=== PATIENT | male | born 1990 | race Caucasian/White ===

== ENCOUNTER 2018-03-30 20:27 | Emergency (ER) | payer OTHER ==
--- NOTE | 2018-03-30 20:47 | EDPHY ---
H & P Stated Complaint: depression ,anxiet/recent admision to [facility] Time Seen by Provider: 03/30/18 20:47 - Personal History Current Tetanus Diphtheria and Acellular Pertussis (TDAP): No - Medical/Surgical History Hx Asthma: Yes Hx Chronic Respiratory Disease: No Hx Diabetes: No Hx Cardiac Disease: No Hx Renal Disease: No Hx Cirrhosis: No Hx Alcoholism: No Hx HIV/AIDS: No Hx Splenectomy or Spleen Trauma: No Other PMH: deprssion anxiety - Social History Smoking Status: Current every day smoker Constitutional: Initial Vital Signs Temperature (C) 36.4 C 03/30/18 20:29 Heart Rate 65 03/30/18 20:29 Respiratory Rate 16 03/30/18 20:29 Blood Pressure 131/82 H 03/30/18 20:29 O2 Sat (%) 98 03/30/18 20:29 O2 Delivery Mode Room Air Allergies/Adverse Reactions: No Known Allergies Allergy (Unverified 03/30/18 20:35) Home Medications: Medication Instructions Recorded Lexapro 03/30/18 Wellbutrin 100mg (*) 03/30/18 Medical Decision Making ED Course/Re-evaluation: CHIEF COMPLAINT: Psychiatric evaluation HISTORY OF PRESENT ILLNESS: The patient is a 27 y/o male with a history of depression and anxiety arriving to the emergency department for a mental health evaluation. He has been hospitalized and [facility] recently and they have been changing his medicines around. He has an appointment with his psychologist tomorrow and his psychiatrist on Saturday. Initially he thought he was very sad and lonely in came here because he was feeling a bit suicidal. However he is not suicidal anymore. He states that his friend is here with thumb who lives with him and another friend is going to stop over his parents are in town and they will spend time with him tomorrow also he feels much better and much calmer now he just wants something to help him sleep a little bit. I have asked him several times several different ways whether not he is suicidal and he denies it. REVIEW OF SYSTEMS: A comprehensive 10 system review of systems is otherwise negative aside from elements mentioned in the history of present illness and medical decision making. PHYSICAL EXAM: General Appearance: Alert, well hydrated, appropriate, and non-toxic appearing. Head: Atraumatic without scalp tenderness or obvious injury Eyes: Pupils equal, round, reactive to light and accommodation, EOMI, no trauma , no injection. Ears: Clear bilaterally, no perforation, normal landmarks Nose: Atraumatic, no rhinorrhea, clear. Throat: There is no erythema or exudates, no lesions, normal tonsils, mucus membranes moist. Neck: Supple, 2+ carotid upstroke, nontender, no lymphadenopathy. Respiratory: No retractions, no distress, no wheezes, and no accessory muscle use. Lungs are clear to auscultation bilaterally. Cardiovascular: Regular rate and rhythm, no murmurs, rubs, or gallops. Bilateral carotid, radial, dorsalis pedis, and posterior tibial pulses intact. Good capillary refill all extremities. Gastrointestinal: Abdomen is soft, nontender, non-distended, no masses, no rebound, no guarding, no peritoneal signs. Musculoskeletal: Normal active ROM of all extremities, atraumatic. Neurological: Alert, appropriate, and interactive. The patient has normal DTRs and non-focal cranial nerves, motor, sensory, and cerebellar exam. Skin: No rashes, good turgor, no nodules on palpation. Past medical history: Depression, anxiety Past surgical history: Denies Family history: Denies Social history: Lives in [place], single, not employed, does not abuse tobacco drugs or alcohol DIFFERENTIAL DIAGNOSIS: The differential diagnosis for the patient's depression included but was not limited to functional and major depression, situational depression, medication side effect, drugs, and alcohol abuse. MEDICAL DECISION MAKING: Patient is in no acute distress and is hemodynamically stable. The patient is not suicidal. The patient meets no criteria for an M1 hold. The patient has good contract for safety with his significant other in the room and another friend coming over this evening. The significant other is traveling over the next week and his parents will spend each day with him according to the patient and his significant other. I will give him for Ativan to help him get some sleep for couple nights. He has a psychological appointment tomorrow in a psychiatric appointment on Saturday. Departure - Departure Disposition: Home, Routine, Self-Care Clinical Impression: Severe major depression Condition: Good Instructions: Lorazepam (By mouth), Depression (ED) Additional Instructions: 1. Follow-up with your mental health provider as directed. 2. Return to the ED for thoughts of self-harm, racing thoughts or other concerns. Referrals: [facility],. [Clinic] - As per Instructions Report Scribed for: Aguila Montgomery Report Scribed by: Etelvina Richey Date of Report: 03/30/18 Time of Report: 21:03
[2018-03-30] MEDS ORDERED: LORAZEPAM 1 MG PREPACK#4 BTL TAKEHOME ONE (21:21)
[2018-03-30 21:34] VITALS: BP 134/77
== END 2018-03-30 21:34 | disposition home or self-care (01) ==
DX: F32.2 Major depressive disorder, single episode, severe without psychotic features (principal); F41.9 Anxiety disorder, unspecified; F17.200 Nicotine dependence, unspecified, uncomplicated

== ENCOUNTER 2018-04-25 14:43 | Emergency (ER) | payer OTHER ==
--- NOTE | 2018-04-25 15:20 | EDPHY ---
H & P - Medical/Surgical History Hx Asthma: Yes Hx Chronic Respiratory Disease: No Hx Diabetes: No Hx Cardiac Disease: No Hx Renal Disease: No Hx Cirrhosis: No Hx Alcoholism: No Hx HIV/AIDS: No Hx Splenectomy or Spleen Trauma: No Other PMH: deprssion anxiety - Social History Smoking Status: Current every day smoker Time Seen by Provider: 04/25/18 14:50 HPI/ROS: CHIEF COMPLAINT: M1, depression HISTORY OF PRESENT ILLNESS: The patient is a 27 y/o male arriving via EMS on an M1 hold for depression and suicidal ideation. He has a history of prior suicide attempts via cutting his wrists in addition to history of chronic abdominal pain from inflammatory bowel disease. He is on medications for depression including bupropion, escitalopram, and gabapentin and reports he is compliant with these. He takes THC nightly to help him sleep as he reports this is the only thing that helps his chronic abdominal pain. He reports he is currently " no danger to myself or others" and his plan today was "to just lie in bed and eventually get up and go to the coffee shop and [employer] store because that cheers me up." He is adamant that he does not want to return to [facility] because he has PTSD from a prior admission at that facility. He says, "it' s not a healing environment. I will do anything, please don't send me there." Reportedly, he was placed on the M1 due to concern from his father, girlfriend, and therapist for suicidal ideation due to increased alcohol use and depressive symptoms. REVIEW OF SYSTEMS: A comprehensive 10 system review of systems is otherwise negative aside from elements mentioned in the history of present illness and medical decision making. * Past medical history: Inflammatory bowel disease, depression - bupropion Past surgical history: Noncontributory Family history: Noncontributory Social history: Daily THC use. He reports he's begun smoking cigarettes recently. Adult Physical: General Appearance: Alert, no acute distress. Eyes: Pupils equal and round, no conjunctival injection, no discharge. ENT, Mouth: Mucous membranes are moist, no oropharyngeal erythema or edema. Neck: No lymphadenopathy, supple. Respiratory: Lungs are clear to auscultation; no wheezes, rales, or rhonchi. Cardiovascular: Regular rate and rhythm; no murmur, rub, or gallop. Gastrointestinal: Abdomen is soft and non tender, no masses or organomegaly. Skin: Warm and dry, no rashes, normal color. Back: Nontender to palpation over the thoracolumbar spine. Extremities: No lower extremity edema, no calf tenderness or swelling. Neurological: Alert and oriented. Moving all four extremities easily and equally. Psychiatric: Tearful, pleading. (Sophie Anderson) Constitutional: Initial Vital Signs Temperature (C) 36.4 C 04/25/18 14:50 Heart Rate 62 04/25/18 14:50 Respiratory Rate 16 04/25/18 14:50 Blood Pressure 151/89 H 04/25/18 14:50 O2 Sat (%) 99 04/25/18 14:50 O2 Delivery Mode Room Air Allergies/Adverse Reactions: No Known Allergies Allergy (Unverified 03/30/18 20:35) Home Medications: Medication Instructions Recorded Bupropion HCl ER 2 tab PO DAILY 04/25/18 Escitalopram Oxalate 1 tab PO DAILY 04/25/18 Gabapentin [Neurontin 300 MG (*)] 1 - 2 tab PO PRN MDD up to 3 times 04/25/18 per day Medical Decision Making ED Course/Re-evaluation: 06: No acute events overnight. Signed over to Dr. Zazueta. (Goivnd Banks) I took over care of this patient at 7:00 a.m.. This patient is on an M1 hold for suicidal ideation. The patient is to be admitted to a psychiatric facility. Destination pending. 10:10 a.m., the patient has been accepted for transfer to inpatient psychiatric unit at [facility]. I filled out the appropriate transfer paperwork. The patient's remaining emergency department course under my care has been uneventful. The patient was transferred in stable condition. (Ursula Conner) This is a 27 y/o male with depression who presents on an M1 hold for suicidal ideation. He denies being a threat to himself or others, though his father, girlfriend, and therapist were very concerned his depression was worsening and he was increasing his substance use. Plan for standard psychiatric labs and evaluation. Care transferred to Dr. Banks at 11:30 p.m. Patient has been accepted at [facility]. EMTALA form has been signed. Transfer will be early in the morning. (Sophie Anderson) Differential Diagnosis: I considered a differential diagnosis that includes but is not limited to depression, suicidality, psychosis, tylor, and substance abuse. (Sophie Anderson ) - Data Points Laboratory Results: Laboratory Results 04/25/18 15:20 04/25/18 15:20 Medications Given: Discontinued Medications Citalopram Hydrobromide (Celexa) 20 mg PO EDNOW ONE Stop: 04/25/18 23:09 Last Admin: 04/26/18 00:47 Dose: Not Given Diphenhydramine HCl (Benadryl) 50 mg PO EDNOW ONE Stop: 04/25/18 23:51 Last Admin: 04/26/18 00:22 Dose: 50 mg Gabapentin (Neurontin) 600 mg PO EDNOW ONE Stop: 04/25/18 23:10 Last Admin: 04/25/18 23:17 Dose: 600 mg Lorazepam (Ativan) 1 mg PO EDNOW ONE Stop: 04/26/18 11:50 Last Admin: 04/26/18 11:57 Dose: 1 mg Departure - Departure Disposition: Other Psych, Not [facility] Clinical Impression: Depression Qualifiers: Depression Type: major depressive disorder Major depression recurrence: recurrent Active/Remission status: remission status unspecified Qualified Code(s ): F33.9 - Major depressive disorder, recurrent, unspecified Condition: Good Referrals: Patient,NotPresent [Unknown] - As per Instructions Report Scribed for: Sophie Anderson Report Scribed by: Sheila Livingston Date of Report: 04/25/18 Time of Report: 20:25 Physician Review and Approval Statement: 04/29/18 08:58 Portions of this chart were entered by a medical unit secretary. I have reviewed the documentation. (Sophie Anderson)
[2018-04-25 15:27] LABS: PLATELET COUNT 258 10^3/uL (150-400)
[2018-04-25] MEDS ORDERED: CITALOPRAM 20 MG TAB PO ONE (23:08)
[2018-04-25] MEDS ORDERED: GABAPENTIN 300 MG CAP PO ONE (23:09)
--- NOTE | 2018-04-25 23:20 | ASMTTLCEVL ---
TLC Evaluation - Basic Information Evaluation Start Date and 04/25/2018 05:00 PM Time Hospital Status Answers: M1 Hold 72-hr M1 Hold Start Date 04/25/2018 12:30 PM and Time Patient statement Notes: " I'm here because my therapist got an email from my girlfriend. I would have gone in for an eval but she lives [facility]. Please please please dont make me go to a hospital I'll do 6 hours a day of IOP any thing you want please dont make me go. I'm going to miss my psychiatrist appointment if i go in and she wont be avaialble again for 6 weeks. . "I've been alone here for 6 hours" Narrative Notes: Pt is 27 YO male, white never , no children, in a relationship, unemployed, and living in [place] with his girlfriend, presents to the ER via [facility] on an M1 Hold written by PT's therapist. Pt's psychiatrist spoke with PT's father as well a few days ago concerned about the PT's safety and wanted to place the PT on a hold but wasn't sure if it was fully needed at that time. Pt's girlfriend texted PT's daughter asking for help due to the PT's decompensating behaviors and concerned about his safety and well being. She reported that he has been increasing his drinking and yesterday drank excessively and took 7 tabs of lorazapam and has using been using edibles all at once. A welfare check was done yesterday and pt begged officers to let him go back in and use his bong again. Now, with A psychiatrist, therapist, parents, and now GF concenred about safety due to suicidal statements and Overdosing on benzos and etoh, the family requested the pt's therapist initiate an M1 Hold. PT has a hx for Bipolar most recent episode depressed, and had a stay in [facility] in March 02 - 03/07/18. PT was seen in the ED 03/30/18 for anxiety and depresive feeling with some SI but then reported he was no longer suicidal and had support from his family coming into town and was discharged home. Pt's family believes that the PT's GF destabilizes the PT and he decompensates. PT's family notes that his Girlfriend seems to corelate with this and pt is obsesses with taking care of her and has lost himself in her issues and is unable to care for himself. PT reportedly was unable to leave the house due to anxiety yesterday, and won't buy food because his GF is anorexic and feels she needs to lose weight so he needs to as well. Per pt's therapist and father the pt seems to have emeshed with his gf and that he was normally a very social person. He hates to be alone. This clinical stand up comedian noted that the pt also mentioned wanting to be an drafter (cad) electrical like his dad, and that the pt is reported to be taking on many of his GF's problems and identifying them as his own, this could be a theme to explore later in treatment when pt is calm enought for critical insights. Diagnosis History Notes: Pt's therapist has dx pt with Bipolar I most recent episode depressed. She believes the pt may not be on the right medications. Rule out borderline personality disorder, rule out attachment disorders Prior suicide attempts Notes: 1 Prior suicide attempts (Pt purchased a crepe box tender with intent to cut his wrists, and avoided hospitalization), possibly 2 if counting the drinking and overdose of ativan yesterday. Prior hospitalizations Notes: [facility] 03/03/18 -03/07/18. Treatment Responses Notes: Pt has been in therapy at an outpt, and in [facility], he does well but then decompensates. PT's family notes that his Girlfriend seems to corelate with this and pt is obsesses with taking care of her and has lost himself in her issues and is unable to care for himself. History of violence Notes: None Reported Therapist: Kellie Rosas [facility] [phone] Psychiatrist: Dr. Marva Seth Medications (name, dosage, route, freq uency) Notes: Wellbutrin and Lexipro Allergies/Reaction Notes: None reported Sleep Notes: Per PT sleep is fine 8 hours. Per therapist Pt reportedly is sleeping a lot Appetite Notes: Per PT appetite is fine, per father and therapist he thinks he needs to lose 20lbs because his girlfriend is anorexic Medical/Surgical history Notes: None reported by pt or family. Substance use history (frequency, intensity, his tory, duration) Notes: PT reported he drinks and uses THC. Pt declined to answer how much he drinks or how often Family composition Notes: Mother and father are together. Need for family Answers: Yes participation in patient's care Family psychiatric/substance abuse history Notes: Per father and therapist, Bilpolar runs in pt's family . Developmental history Notes: No ADD/ADHD, learning disorders, TBI's or concussions reported. Abuse concerns Answers: None Marital status/children Notes: Unmarried no children Living situation Notes: Living with GF in [place], however pt's parents will no longer pay rent to support her, due to his negative impact on him. Sexual history/orientation Notes: Heterosexual, Active Peer support/family strengths Notes: PT has a very supportive family, and theraputic connections. Education level/history Notes: "It's embarasing I failed out of my Electrical Engineering classes because I didn't have a group to work with, at my age its hard to find groups. I just wanted to work on electronics like my Dad but I'm not smart enough" AA from [facility] and was attending for Electrical Engineering but failed/ had to withdraw his first semester from [employer] after decompensating. Work history Notes: Pt worked at [employer] but he called in sick 4 days in row to [employer] with his dad because he dad spent $800 on the tickets and would have been furious. Pt said he went in today to get his stuff and ended up telling his boss what happened and his boss asked for his keys back, but he was really kind about it. Pt believes he no longer has a job now. Notes: None reported Legal Notes: Per pt "I was arrested for having THC" and spent a few hours in [facility]. Per pt's father PT had a felony when he was 18 for drug distrobution but that after 10 years the felony an be cleared from his record (its year 9). Uatsdin/Spiritual Notes: PT reported he is not spiritual or religous. Leisure Notes: Bike,thrift stores, coffee shops, working out, listening to classical music, Collateral Notes: Collateral data obtained from pt's therapist and pt's father who arrived at the ED shortly after PT's arrival. They expressed extreme concern about the pt's compensation and provided significant background and recent bx observations and believe the PT is an imminent risk of harm to self and is unable to care for himself. Dr. Marva Seth [phone] PT's father [phone] Pt's Therapist Yuki Stone [phone] Patient's strengths Answers: Artistic/Creative/Musical (Please select at least TWO strengths): Intelligent Supportive Family TLC Evaluation - Mental Status Exam Appearance: Answers: Appropriate Clean Disheveled Eye Contact: Answers: Good/Direct Mood: Answers: Depressed Labile Sad Affect: Answers: Anxious Apprehensive Congruent w/ Mood Fearful Guarded Inappropriate Labile Nervous Sad Tearful Behavior: Answers: Inappropriate Cooperative Anxious Crying Fearful Guarded Manipulative Resistive to Care Talkative Speech: Answers: Relevant Clear Coherent Circumstantial Dramatic Excessive Perseverating Pressured Thought Process: Answers: Organized Oriented Alert Circumstantial Goal Oriented Racing Thoughts Insight: Answers: Poor Judgement: Answers: Poor Manic Signs/Symptoms Answers: Distractibility Impulsivity Irritability Mood Swings Pressured Speech Depression Answers: Crying Spells Signs/Symptoms: Difficulty Concentrating Diminished Interest Diminished Pleasure Hopelessness Psychomotor Retardation Sad Mood Withdrawn Worthlessness Anxiety Signs/Symptoms Answers: Generalized Anxiety Hallucinations: Answers: None Current Stage of Change Answers: Precontemplation Pt reported to have Answers: Yes suicidal/self-injuring ideation/behavior? Pt reported to be making Answers: Yes suicidal/self-injuring threats? Pt reported to have Answers: No aggression/assault ideation/behavior? Pt reported to be making Answers: No aggression/assault threats? Pt exhibits inability to Answers: Yes care for self/grave disability? Ideation/behavior is Answers: Yes chronic? Patient has a specific Answers: Yes plan? Pt has access to means to Answers: Yes execute the plan? Ideation involves Answers: Yes serious/lethal intent? Ideation has Answers: No delusional/hallucinatory content? History of Answers: Yes suicidal/self-injuring ideation, behavior, or threats? History of Answers: No aggressive/assaultive ideation, behavior, or threats? History of serious Answers: No physical harm to self/others while in treatment setting? TLC Evaluation - Suicide/Homicide Risk Suicide Risk Factors: Answers: Alcohol/Heavy Drug Use Anhedonia Anxiety/Panic, Severe Bipolar Disorder Financial Difficulties Impulsivity Legal Difficulties Organized Lethal Plan Problems with Partner Rapid Mood Shifts School Difficulties Unstable Living Situation Homicide/violence risk Answers: Borderline Personality DO factors: Current Suicidal Answers: No Ideation? Current Suicide Ideation PT currently denies Frequency: Current Suicidal Ideation Answers: Yes in the Past 48 Hours? Current Suicidal Ideation Answers: Yes in the Past Month? Current Suicidal Answers: No Ideation, Worst Ever? Suicide Internal Answers: Absence of Psychosis Protective Factors: Suicide External Answers: Positive Therapeutic Protective Factors: Relationships Social Support Ranking of patient's Answers: Severe suicidal risk: Ranking of patient's Answers: Low homicidal risk: TLC Evaluation - Wrap-up BDI Total Score: 7 BDI Question #2 Score: 1 BDI Question #9 Score: 0 BSS Total Score: 0 AXIS I Diagnosis (include DSM-V and ICD-10 codes), must also be entered in [employer], which is the source of truth. Notes: Bipolar I Disorder, current or most recent episode depressed, moderate 296.52 (F31.32) Rule out Borderline PD and Rule out Attachment Disorder Evaluation End Date and 04/25/2018 11:30 PM Time (HH:AILEEN): Date Signed: 04/25/2018 11:19 PM Electronically Signed By:Drew Mckeon
--- NOTE | 2018-04-25 23:25 | ASMTLCPROG ---
Notes Note: Notes: PT denied taking 7 Lorazapam whlile drinking. He reportedly took 2 in the morning and 2 in the evening while drinking. Date Signed: 04/25/2018 11:24 PM Electronically Signed By:Drew Mckeon
[2018-04-25] MEDS ORDERED: diphenhydrAMINE 25 MG CAP PO ONE (23:50)
[2018-04-26] MEDS ORDERED: diphenhydrAMINE 50 MG CAP PO ONE ×2 (00:23→00:25)
--- NOTE | 2018-04-26 09:34 | ASMTTCLDSP ---
TLC Discharge Disposition Disposition: Answers: Transfer Discharge Concerns/Recommendations: Notes: Pt transferred to [facility] for inpt treatment. Type of Hold: Answers: M1/72-hour Hold Hold initiated by: Answers: Other Notes: Clinical Fill Manager For Transfers, Accepting [facility] Facility: For Transfers, Accepting Dr Eagle Tirado Psychiatrist: For Transfers, Reason No beds on [facility] Patient is Being Transferred: Date Signed: 04/26/2018 09:33 AM Electronically Signed By:Mayela Manley
[2018-04-26 11:11] VITALS: BP 114/78
[2018-04-26] MEDS ORDERED: LORazepam 1 MG TAB PO ONE (11:49)
[2018-04-26] MEDS ORDERED: LORazepam 1 MG TAB ONE (11:49)
== END 2018-04-26 12:24 ==
LOC: EDUNIT#
DX: F32.9 Major depressive disorder, single episode, unspecified (principal)
CPT/HCPCS: 80305; G0480